=== PATIENT | male | born 1985 | race Caucasian/White ===

== ENCOUNTER → 2017-09-02 12:21 | Outpatient (CLI) | payer OTHER, SELFPAY ==
[2017-09-04 15:22] LABS: Mumps Virus IgM Antibody <1:20 (<1:20)
== END ==
PROVIDERS: PCP Family Medicine; Visit Provider Physician Assistant
DX: K11.20 Sialoadenitis, unspecified (principal)
CPT/HCPCS: 36415; 86735

== ENCOUNTER → 2017-09-28 08:44 | Outpatient (CLI) | payer OTHER, SELFPAY | PROVIDERS: PCP Family Medicine; Visit Provider Nurse Practitioner Family | DX: K11.1 Hypertrophy of salivary gland (principal) | CPT/HCPCS: 87070; 87075; 87077; 87205 ==

== ENCOUNTER → 2019-10-15 14:36 | Outpatient (CLI) | payer BC, SELFPAY ==
[2019-10-16 22:54] LABS: COVID19 Sendout Not Detected (Not Detected)
== END ==
PROVIDERS: PCP Family Medicine; Visit Provider Physician Assistant
DX: Z11.59 Encounter for screening for other viral diseases (principal)
CPT/HCPCS: 87635